=== PATIENT | female | born 1985 | race Caucasian/White ===

== ENCOUNTER 2017-04-12 20:30 | Emergency (ER) | payer OTHER ==
[2017-04-12 21:10] VITALS: BP 135/83
--- NOTE | 2017-04-12 21:49 | EDM.PDOC ---
ED HPI GENERAL MEDICAL PROBLEM - General Chief Complaint: Back Pain or Injury Stated Complaint: HURT BACK Time Seen by Provider: 04/12/17 21:12 Source of Information: Reports: Patient History Limitations: Reports: No Limitations - History of Present Illness INITIAL COMMENTS - FREE TEXT/NARRATIVE: This lady's has cerebral palsy and a few hours ago she was pulling off his boots and when his boot came off she fell backwards onto the floor. She complains of pain and spasm to the lower lumbar area especially into the right SI joint area. There's no weakness to the legs no problems with bladder or bowels. Lower Back Pain Score (Numeric/FACES): 9 - Related Data Allergies Allergy/AdvReac Type Severity Reaction Status Date / Time No Known Allergies Allergy Verified 04/12/17 21:09 Home Meds: Home Meds Acetaminophen [Tylenol] 1 tab PO ASDIRECTED 04/12/17 [History] Acyclovir [Zovirax 5% Crm] 1 applic TOP ASDIRECTED 04/12/17 [History] ClonazePAM [KlonoPIN] 1 tab PO BID PRN 04/12/17 [History] Esomeprazole [NexIUM] 40 mg PO DAILY 04/12/17 [History] Vitamin B Complex 1 cap PO DAILY 04/12/17 [History] Past Medical History Neurological History: Reports: Concussion Psychiatric History: Reports: Anxiety - Infectious Disease History Infectious Disease History: Reports: Chicken Pox - Past Surgical History GI Surgical History: Reports: Bariatric Procedure, Cholecystectomy Social & Family History - Tobacco Use Smoking Status *Q: Never Smoker Second Hand Smoke Exposure: No - Caffeine Use Caffeine Use: Reports: Coffee, Soda - Recreational Drug Use Recreational Drug Use: No ED ROS GENERAL - Review of Systems Review Of Systems: ROS reveals no pertinent complaints other than HPI. ED EXAM,LOWER BACK PAIN/INJURY - Physical Exam Exam: See Below Exam Limited By: No Limitations General Appearance: Alert, WD/WN, Mild Distress Back Exam: Other (There is palpable muscle spasm to the right lower lumbar paraspinous muscles and the palpable spasm in the area of the right SI joint. There is decreased range of motion of the back straight leg raises are negative muscle strength to the lower extremities is all negative) Neurological: Alert, No Motor/Sensory Deficits Course - Vital Signs Last Recorded V/S: Last Vital Signs Temp 36.6 C 04/12/17 21:13 Pulse 95 04/12/17 21:13 Resp 16 04/12/17 21:13 BP 135/83 04/12/17 21:13 Pulse Ox 100 04/12/17 21:13 Departure - Departure Time of Disposition: 21:47 Disposition: Home, Self-Care 01 Condition: fair Clinical Impression: Acute low back pain, Back muscle spasm - Discharge Information Forms: ED Department Discharge Additional Instructions: Apply heat. For pain take Narco 5/325, 18 tablets, one or 2 tablets every 4 hours as needed for pain. For muscle spasm take Flexeril 10 mg 3 times a day, # 15 Both medications can cause sedation and impair driving. The Narco already contains Tylenol said they'll take any extra Tylenol. See your Dr. if no better in a few days.
== END 2017-04-12 21:57 | disposition home or self-care (01) ==
LOC: JP.ED 20:30
DX: M62.830 Muscle spasm of back (principal); M54.5 Low back pain; F41.9 Anxiety disorder, unspecified; Z79.899 Other long term (current) drug therapy; Z98.84 Bariatric surgery status; Z90.49 Acquired absence of other specified parts of digestive tract; W19.XXXA Unspecified fall, initial encounter
CPT/HCPCS: 99283

== ENCOUNTER 2017-08-16 16:53 | Emergency (ER) | payer OTHER ==
[2017-08-16 18:05] VITALS: BP 142/87
[2017-08-16] MEDS ORDERED: Cyclobenzaprine 10 MG Tab PO ONE (18:29)
[2017-08-16] MEDS ORDERED: Acetaminophen/oxyCODONE 325-5 MG Tab PO ONE (18:30)
[2017-08-16] MEDS ORDERED: Ketorolac 60 MG/2 ML SDV IM ONE (18:31)
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
--- NOTE | 2017-08-18 10:28 | CR ---
Lumbar Spine Min 4V HISTORY: Pain COMPARISON: None FINDINGS: There are 5 lumbar type vertebral bodies. The lumbar vertebral body heights and disc spaces are well preserved. No fracture or subluxation. Very subtle degenerative facet change L5-S1 bilatera lly.
== END 2017-08-16 19:37 | disposition home or self-care (01) ==
LOC: JP.ED 16:53
DX: M54.5 Low back pain (principal); F41.9 Anxiety disorder, unspecified; Z98.84 Bariatric surgery status; Z90.49 Acquired absence of other specified parts of digestive tract; Z98.890 Other specified postprocedural states; Z79.899 Other long term (current) drug therapy; Z88.8 Allergy status to other drugs, medicaments and biological substances
CPT/HCPCS: 72110; 96372; 99284; A9270; J1885